=== PATIENT | male | born 1995 | race Caucasian/White ===

== ENCOUNTER 2017-02-13 12:11 | Emergency (ER) | payer OTHER ==
--- NOTE | 2017-02-13 13:52 | DIAGNOSTIC IMAGING REPORT ---
PROCEDURE: CT HEAD WITHOUT CONTRAST INDICATION: HEADACHE TECHNIQUE: Axial CT images were acquired through the head. Coronal and sagittal reformations were created. COMPARISON: 02/16/2011 and brain MR 02/23/2011 FINDINGS: There is a tiny quantity of blood layering dependently in the interpeduncular cistern (axial image 11, sagittal image 29). This is just caudal to the basilar artery but no definite basilar artery aneurysm seen on this noncontrast scan. No other areas of intraparenchymal, intraventricular, subarachnoid, or extraaxial hemorrhage visible. No hydrocephalous. Stable 9 mm noncalcified pineal gland cyst again noted without significant change. Up-white matter differentiation is intact. No vasogenic edema present. Extra-axial soft tissues, globes, orbits, skull, and sinuses are normal. IMPRESSION: 1. Small amount of acute subarachnoid hemorrhage layering in the interpeduncular cistern. An aneurysm is not readily apparent on the noncontrast scan. This is could be a small venous hemorrhage. No hydrocephalous. 2. CT angiogram is pending. 3. Stable, noncalcified pineal gland cyst. 4. Discussed with Dr. Duffy at [address] scans at this facility use dose modulation, iterative reconstruction, and/or weight-based dosing when appropriate to reduce radiation dose to as low as reasonably achievable.
--- NOTE | 2017-02-13 14:45 | DIAGNOSTIC IMAGING REPORT ---
PROCEDURE: CTA HEAD AND NECK INDICATION: STENOSIS TECHNIQUE: Axial thin-slice CTA images through the neck and head were acquired following uncomplicated administration of 75 ml Isovue 370 IV contrast. Coronal and sagittal MIP reformations were created. COMPARISON: None. FINDINGS: Head: Anterior circulation: No evidence of aneurysm, vascular formation, tumor stain or neovascularity. Posterior circulation: No evidence of aneurysm, vascular formation, tumor stain or neovascularity. Other findings: Normal Neck: Carotid system: Normal carotid bifurcations. No evidence of a dissection or aneurysm Vertebral system: No evidence of a dissection, aneurysm, or fibromuscular dysplasia. Other findings: Normal IMPRESSION: 1. CTA negative for aneurysm, vascular malformation, or dissection.
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
--- NOTE | 2017-02-13 16:04 | ED ORDER SUMMARY ---
..... Patient: OPAL MAYER OrderSheet [facility] VisitID: [id number] [place] [address] 22y, M Registration Date/Time: 02/13/2017 ORDER SHEET Weight: 54.4 kg (stated) Allergies: Topamax GENERAL ORDERS: CT Head wo Cont (H/O Pineal gland cyst. Prior imaging here) Urgent (13:06 02/13/2017 Tristan Mcgregor) (Ack 13:12 LNations ER Tech1) (15:11 KPalore-Kuchan R.N.) CBC w Diff Urgent (13:49 02/13/2017 Tristan Mcgregor) (Ack 13:51 LNations ER Tech1) (14:05 GMarshall R.N.) CMP Urgent (13:49 02/13/2017 Tristan Mcgregor) (Ack 13:51 LNations ER Tech1) (14:05 GMarshall R.N.) PT with INR Urgent (13:49 02/13/2017 Tristan Mcgregor) (Ack 13:51 LNations ER Tech1) (14:05 GMarshall R.N.) PTT Urgent (13:49 02/13/2017 Tristan Mcgregor) (Ack 13:51 LNations ER Tech1) (14:05 GMarshall R.N.) NPO (13:49 02/13/2017 Tristan Mcgregor) (Ack 13:51 LNations ER Tech1) (14:05 GMarshall R.N.) CTA Head and Neck (No) (N/A) (Potential bleed on non-contrasted CT) Urgent (14:07 02/13/2017 Tristan Mcgregor) (Ack 14:16 LNations ER Tech1) (15:11 Milton-Elvisn R.N.) MEDICATION ORDERS: IV FLUIDS: IV NS : initial bolus none -, then 1000 mL/hr for X1 (NOW) (13:48 02/13/2017 Tristan Mcgregor) (14:35 JBest R.N.) Morphine IV 4 mg (HIGH ALERT MEDICATION, NOW) (14:54 02/13/2017 Kodak R.N. verbal order read back to Tristan Mcgregor) (Ack 14:54 KPalore-Ry R.Jim) (15:07 Milton-Ry Hannah) ORDER SHEET NOTES: [Electronically signed by Lety Cao R.N. (18:42 02/13/2017)] [Electronically signed by Jose Duffy Dr. (08:33 02/15/2017)] [Electronically locked/signed by Lety Cao R.N. (18:42 02/13/2017)]
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
--- NOTE | 2017-02-13 16:04 | ED ORDER SUMMARY ---
..... Patient: OPAL MAYER OrderSheet [facility] VisitID: [id number] [place] [address] 22y, M Registration Date/Time: 02/13/2017 ORDER SHEET Weight: 54.4 kg (stated) Allergies: Topamax GENERAL ORDERS: CT Head wo Cont (H/O Pineal gland cyst. Prior imaging here) Urgent (13:06 02/13/2017 Tristan Mcgregor) (Ack 13:12 LNations ER Tech1) (15:11 KPalore-Kuchan R.N.) CBC w Diff Urgent (13:49 02/13/2017 Tristan Mcgregor) (Ack 13:51 LNations ER Tech1) (14:05 GMarshall R.N.) CMP Urgent (13:49 02/13/2017 Tristan Mcgregor) (Ack 13:51 LNations ER Tech1) (14:05 GMarshall R.N.) PT with INR Urgent (13:49 02/13/2017 Tristan Mcgregor) (Ack 13:51 LNations ER Tech1) (14:05 GMarshall R.N.) PTT Urgent (13:49 02/13/2017 Tristan Mcgregor) (Ack 13:51 LNations ER Tech1) (14:05 GMarshall R.N.) NPO (13:49 02/13/2017 Tristan Mcgregor) (Ack 13:51 LNations ER Tech1) (14:05 GMarshall R.N.) CTA Head and Neck (No) (N/A) (Potential bleed on non-contrasted CT) Urgent (14:07 02/13/2017 Tristan Mcgregor) (Ack 14:16 LNations ER Tech1) (15:11 Milton-Elvisn R.N.) MEDICATION ORDERS: IV FLUIDS: IV NS : initial bolus none -, then 1000 mL/hr for X1 (NOW) (13:48 02/13/2017 Tristan Mcgregor) (14:35 JBest R.N.) Morphine IV 4 mg (HIGH ALERT MEDICATION, NOW) (14:54 02/13/2017 Kodak R.N. verbal order read back to Tristan Mcgregor) (Ack 14:54 KPalore-Ry R.Jim) (15:07 Milton-Ry Hannah) ORDER SHEET NOTES: [Electronically signed by Lety Cao R.N. (18:42 02/13/2017)] [Electronically signed by Jose Duffy Dr. (08:33 02/15/2017)] [Electronically locked/signed by Lety Cao R.N. (18:42 02/13/2017)]
--- NOTE | 2017-02-15 08:34 | ED DISCHARGE INSTRUCTIONS ---
Patient: OPAL MAYER General Instructions [facility] VisitID: [id number] [address] [address] 22y, M Registration Date/Time: 02/13/2017 Nontraumatic subarachnoid hemorrhage. INSTRUCTIONS Follow-up: Screening today revealed the patient's blood pressure to be in the normal range. (Electronically signed by Jose Duffy Dr. 02/15/2017 8:33)
--- NOTE | 2017-02-15 08:34 | ED MED RECONCILIATION SUMMARY ---
Patient: OPAL MAYER Medication Reconciliation Report [facility] VisitID: [id number] [address] [place] [address] 22y, M Registration Date/Time: 02/13/2017 Weight: 54.4 kg Height/Length: 73 in. BMI: 15.8 ALLERGIES: Topamax The patient's Home Medications are listed below: NONE. The source(s) of the original Home Medication information: Not obtained. The following Medications were given to the patient in the Emergency Department: IV NS IV Fluids bolus 1000 mL over 1 hour(s), administered: 02/13/2017 2:35:00 PM Morphine [IVP] IVP 4 mg, administered: 02/13/2017 3:02:00 PM The following Medications were prescribed to the patient: None.
--- NOTE | 2017-02-15 08:34 | ED MED RECONCILIATION SUMMARY ---
Patient: OPAL MAYER Medication Reconciliation Report [facility] VisitID: [id number] [address] [place] [address] 22y, M Registration Date/Time: 02/13/2017 Weight: 54.4 kg Height/Length: 73 in. BMI: 15.8 ALLERGIES: Topamax The patient's Home Medications are listed below: NONE. The source(s) of the original Home Medication information: Not obtained. The following Medications were given to the patient in the Emergency Department: IV NS IV Fluids bolus 1000 mL over 1 hour(s), administered: 02/13/2017 2:35:00 PM Morphine [IVP] IVP 4 mg, administered: 02/13/2017 3:02:00 PM The following Medications were prescribed to the patient: None.
--- NOTE | 2017-02-15 08:34 | ED DISCHARGE INSTRUCTIONS ---
Patient: OPAL MAYER General Instructions [facility] VisitID: [id number] [address] [place] [address] 22y, M Registration Date/Time: 02/13/2017 Nontraumatic subarachnoid hemorrhage. INSTRUCTIONS Follow-up: Screening today revealed the patient's blood pressure to be in the normal range. (Electronically signed by Jose Duffy Dr. 02/15/2017 8:33)
--- NOTE | 2017-02-15 08:34 | ED MAR SUMMARY ---
..... Medication Administration Record [facility] [address] [place] [address] Patient: OPAL MAYER Visit ID: [id number] 22y, M Weight: 54.4 kg Height/Length: 73 in BMI: 15.8 ALLERGIES: Topamax Start 14:35 02/13/2017 Lety Cao RBlanquita, Stop 15:36 02/13/2017 Lety Cao R.N. Medication Administered: IV NS (SALINE), Dose: IV Fluids, Bolus: 1000 mL over 1 hour(s), Dispensed: 1000 mL bag, Site: #1 left AC. Medication Ordered: IV NS : initial bolus none -, then 1000 mL/hr for X1 (NOW). Given 15:02 02/13/2017 Alvarez Leger R.N. Medication Administered: MORPHINE [IVP], Dose: 4 mg IVP, Site: #1 left AC. Medication Ordered: Morphine IV 4 mg (HIGH ALERT MEDICATION, NOW).
--- NOTE | 2017-02-15 08:34 | ED MAR SUMMARY ---
..... Medication Administration Record [facility] [address] [place] [address] Patient: OPAL MAYER Visit ID: [id number] 22y, M Weight: 54.4 kg Height/Length: 73 in BMI: 15.8 ALLERGIES: Topamax Start 14:35 02/13/2017 Lety Cao RBlanquita, Stop 15:36 02/13/2017 Lety Cao R.N. Medication Administered: IV NS (SALINE), Dose: IV Fluids, Bolus: 1000 mL over 1 hour(s), Dispensed: 1000 mL bag, Site: #1 left AC. Medication Ordered: IV NS : initial bolus none -, then 1000 mL/hr for X1 (NOW). Given 15:02 02/13/2017 Alvarez Leger R.N. Medication Administered: MORPHINE [IVP], Dose: 4 mg IVP, Site: #1 left AC. Medication Ordered: Morphine IV 4 mg (HIGH ALERT MEDICATION, NOW).
== END 2017-02-13 17:05 | disposition short-term general hospital (02) ==
LOC: ED SRH 12:11
DX: I60.9 Nontraumatic subarachnoid hemorrhage, unspecified (principal); Z88.8 Allergy status to other drugs, medicaments and biological substances
CPT/HCPCS: 90100; 94001; 94060; 95059